=== PATIENT | female | born 1945 | race Caucasian/White ===

== ENCOUNTER 2019-04-05 11:49 | Inpatient (IN) | payer MEDICARE ==
[~2019-04-05] VITALS: Ht 160 cm; Wt 49.4 kg
[2019-04-05] MEDS ORDERED: Ventolin/Prove6.7 GM INH (12:57)
[2019-04-05] MEDS ORDERED: METOPROLOL TART25 MG PO (12:58)
[2019-04-05] MEDS ORDERED: ANORO ELLIPTA1 EACH INH (12:59)
[2019-04-05] MEDS ORDERED: Zantac150 MG PO (12:59)
[2019-04-05] MEDS ORDERED: LEVSOD50 PO (13:15)
[2019-04-05 13:51] LABS: BASOPHILS ABSOLUTE AUTO 0.05 K/mm3 (0.00-0.23); BASOPHILS PERCENT AUTO 1 % (0-2); EOSINOPHILS ABSOLUTE AUTO 0.02 K/mm3 (0.00-0.68); EOSINOPHILS PERCENT AUTO 0 % (0-6); Hematocrit 39.8 % (33.0-51.0); IMMATURE GRAN ABSOLUTE AUTO 0.07 K/mm3 (0.00-0.10); IMMATURE GRAN PERCENT AUTO 1 % (0-1); LYMPHOCYTES ABSOLUTE AUTO 2.11 K/mm3 (0.84-5.20); LYMPHOCYTES PERCENT AUTO 20 % (21-46); MONOCYTES PERCENT AUTO 5 % (4-13); Mean Corpuscular HGB 31.2 pg (26.0-34.0); Mean Corpuscular HGB Conc 32.7 g/dL (31.5-36.5); Mean Corpuscular Volume 95 fL (80-100); Mean Platelet Volume 8.6 fL (9.1-12.4); NEUTROPHILS ABSOLUTE AUTO 7.77 K/mm3 (1.96-9.15); NEUTROPHILS PERCENT AUTO 74 % (41-73); Platelet Count 302 K/mm3 (150-400); RDW Standard Deviation 49.1 fL (35.1-46.3); Red Blood Cell Count 4.17 M/mm3 (3.80-5.20); White Blood Cell Count 10.52 K/mm3 (4.00-11.30)
[2019-04-05 14:07] LABS: International Normalized Ratio 1.06; Prothrombin Time Results 11.2 Sec (9.7-11.5)
[2019-04-05 14:16] LABS: Alanine Aminotransfer (ALT/SGP 15 U/L (12-78); Albumin, Blood 2.7 g/dL (3.4-5.0); Albumin/Globulin Ratio 0.7 (0.8-1.8); Alk Phos 39 U/L (50-136); Anion Gap 6 mmol/L (6-16); Aspartate Aminotrans (AST/SGOT 22 U/L (12-37); Bilirubin, Total 0.4 mg/dL (0.1-1.0); Blood Urea Nitrogen 8 mg/dL (8-24); Bun/Creatinine Ratio 17.3 (12.0-20.0); CO2, Blood 26 mmol/L (21-32); Calcium, Blood 8.3 mg/dL (8.5-10.1); Chloride, Blood 106 mmol/L (98-108); Creatinine, Blood 0.46 mg/dL (0.40-1.00); Globulin, Blood 4.1 g/dL (2.2-4.0); Glomerular Filtration Rate >60 (60-); Glucose, Blood 104 mg/dL (70-99); Magnesium, Blood 1.8 mg/dL (1.6-2.4); Potassium, Blood 4.1 mmol/L (3.5-5.5); Sodium, Blood 138 mmol/L (136-145); Total Protein, Blood 6.8 g/dL (6.4-8.2)
--- NOTE | 2019-04-05 17:07 | NUR ---
DR. MOTA IN TO SEE PT AT ABOUT 1700
--- NOTE | 2019-04-05 17:09 | NUR ---
ADMISSION: REPORT RECEIVED BY PARK MAINTAINER RAMIREZ. PT TO UNIT AT ABOUT 1420. PT ABLE TO AMBULATE TO BED FROM [facility]. VSS. NGT HOOKED TO LIS. MODERATE AMOUNT OUTPUT. PT ADMISSION CHARTING COMPLETED AND EDUCATED ABOUT TREATMENT/ROOM. PT VERBALIZED UNDERSTANDING. REPORTS ABD PAIN, MEDICATED PER EMAR. PT DAUGHTER AND AT BEDSIDE. WILL CTM.
--- NOTE | 2019-04-05 17:40 | NUR ---
SUMMARY: NO CHANGE SINCE ADMISSION, MEDICATED FOR PAIN PRN. PT DENIES NAUSEA, UP TO VOID X1. WILL CTM AND REPORT TO NOC RN
[2019-04-06 04:21] LABS: BASOPHILS ABSOLUTE AUTO 0.03 K/mm3 (0.00-0.23); BASOPHILS PERCENT AUTO 0 % (0-2); EOSINOPHILS ABSOLUTE AUTO 0.02 K/mm3 (0.00-0.68); EOSINOPHILS PERCENT AUTO 0 % (0-6); Hematocrit 40.3 % (33.0-51.0); Hemoglobin 12.6 g/dL (11.5-16.0); IMMATURE GRAN ABSOLUTE AUTO 0.11 K/mm3 (0.00-0.10); IMMATURE GRAN PERCENT AUTO 1 % (0-1); LYMPHOCYTES ABSOLUTE AUTO 0.96 K/mm3 (0.84-5.20); LYMPHOCYTES PERCENT AUTO 11 % (21-46); MONOCYTES ABSOLUTE AUTO 0.48 K/mm3 (0.16-1.47); MONOCYTES PERCENT AUTO 5 % (4-13); Mean Corpuscular HGB 30.9 pg (26.0-34.0); Mean Corpuscular HGB Conc 31.3 g/dL (31.5-36.5); NEUTROPHILS ABSOLUTE AUTO 7.29 K/mm3 (1.96-9.15); NEUTROPHILS PERCENT AUTO 82 % (41-73); Platelet Count 294 K/mm3 (150-400); RDW Coefficient Variation 14.1 % (11.7-14.2); RDW Standard Deviation 51.6 fL (35.1-46.3); Red Blood Cell Count 4.08 M/mm3 (3.80-5.20); White Blood Cell Count 8.89 K/mm3 (4.00-11.30)
[2019-04-06 04:24] LABS: Mean Corpuscular Volume 99 fL (80-100)
[2019-04-06 04:43] LABS: Alanine Aminotransfer (ALT/SGP 16 U/L (12-78); Albumin, Blood 2.5 g/dL (3.4-5.0); Albumin/Globulin Ratio 0.6 (0.8-1.8); Alk Phos 35 U/L (50-136); Anion Gap 8 mmol/L (6-16); Aspartate Aminotrans (AST/SGOT 14 U/L (12-37); Bilirubin, Total 0.5 mg/dL (0.1-1.0); Blood Urea Nitrogen 9 mg/dL (8-24); Bun/Creatinine Ratio 15.3 (12.0-20.0); CO2, Blood 25 mmol/L (21-32); Calcium, Blood 7.9 mg/dL (8.5-10.1); Chloride, Blood 108 mmol/L (98-108); Creatinine, Blood 0.59 mg/dL (0.40-1.00); Globulin, Blood 3.9 g/dL (2.2-4.0); Glomerular Filtration Rate >60 (60-); Glucose, Blood 103 mg/dL (70-99); Potassium, Blood 4.1 mmol/L (3.5-5.5); Sodium, Blood 141 mmol/L (136-145); Total Protein, Blood 6.4 g/dL (6.4-8.2)
[2019-04-06 04:45] LABS: C-REACTIVE PROTEIN, EXT RANGE 2.12 mg/dL (0.000-0.300); Magnesium, Blood 1.7 mg/dL (1.6-2.4)
[2019-04-06 04:47] LABS: Percent Saturation 32.2 % (15.0-50.0)
--- NOTE | 2019-04-06 08:01 | NUR ---
SUMMARY PT REQUIRING IV PAIN MEDS AND ANTI EMETICS THIS SHIFT. HAD EMESIS X 1 BILE AROUND TUBE. FLUSHED TUBE WITH NO SEDIMENT OR PARTICLES RETURNED. SMALL TUBE NOTE. PT VERB COULD NOT GET LARGER TUBE IN.PT OOB FOR BRP TONIGHT WITH ASSIST. VOIDING CLR YELLOW APPEARS, BUT MIXED WITH CREAMY,SLIGHT PINK TINGED AND FEW RED STRINGY PARTICLES WHICH PT VERB PASSED PER RECTUM. REPORTS HAD RECTAL BLEEDING PRIOR TO COMING IN. WILL CONT TO MONITOR. UNABLE TO OBTAIN STOOL SAMPLE FOR LABS, BUT WILL CONTINUE TO ATTEMPT.NG PLACEMENT CHECKED AND AFTER CHECKING CXR REPORT,NG ADVANCED APPROX 1 INCH TO OBTAIN IMPROVED OUTPUT AFTER EMESIS.PT WAS SEEN BY DR LOUIE LAST NIGHT,SOLUMEDROL ORDERED. DR AWARE OF LISTED ALLERGY TO PREDNISONE. ORDERED BENADRYL 30 MIN BEFORE SOLUMEDROL.
--- NOTE | 2019-04-06 10:36 | NUR ---
BENADRYL GIVEN BEFORE SOLU-MEDROL DOSE, NO REPORT OF ALLERGY SYMPTOMS AT THIS TIME. PT IS RESTING QUIETLY. WILL CTM.
--- NOTE | 2019-04-06 19:32 | NUR ---
SUMMARY: PT ADMITTED FOR SBO. NO ACUTE CHANGE TODAY. VSS, A/O. PT SLEPT THE MAJORITY OF THE DAY, STATES THAT SHE HAS NOT SLEPT WELL THE LAST COUPLE NIGHTS. PT HAS DENIED NAUSEA, MINIMAL PAIN, RATED 2/10. NO BM. ABLE TO AMBULATE TO BATHROOM WITH 1 ASSIST. PPN STARTED AT ABOUT 1700. NO NEW OUTPUT FROM NGT. REPORT GIVEN TO RADHA PAINTER.
[2019-04-07 04:09] LABS: BASOPHILS ABSOLUTE AUTO 0.02 K/mm3 (0.00-0.23); BASOPHILS PERCENT AUTO 0 % (0-2); EOSINOPHILS PERCENT AUTO 0 % (0-6); Hematocrit 34.9 % (33.0-51.0); Hemoglobin 11.3 g/dL (11.5-16.0); IMMATURE GRAN ABSOLUTE AUTO 0.05 K/mm3 (0.00-0.10); IMMATURE GRAN PERCENT AUTO 1 % (0-1); LYMPHOCYTES ABSOLUTE AUTO 1.12 K/mm3 (0.84-5.20); LYMPHOCYTES PERCENT AUTO 15 % (21-46); MONOCYTES ABSOLUTE AUTO 0.11 K/mm3 (0.16-1.47); MONOCYTES PERCENT AUTO 2 % (4-13); Mean Corpuscular HGB Conc 32.4 g/dL (31.5-36.5); Mean Platelet Volume 8.8 fL (9.1-12.4); NEUTROPHILS ABSOLUTE AUTO 6.12 K/mm3 (1.96-9.15); NEUTROPHILS PERCENT AUTO 82 % (41-73); Platelet Count 279 K/mm3 (150-400); RDW Coefficient Variation 13.7 % (11.7-14.2); Red Blood Cell Count 3.64 M/mm3 (3.80-5.20); White Blood Cell Count 7.42 K/mm3 (4.00-11.30)
[2019-04-07 04:14] LABS: Mean Corpuscular Volume 96 fL (80-100)
[2019-04-07 04:28] LABS: Alanine Aminotransfer (ALT/SGP 14 U/L (12-78); Albumin, Blood 2.3 g/dL (3.4-5.0); Albumin/Globulin Ratio 0.6 (0.8-1.8); Alk Phos 32 U/L (50-136); Anion Gap 4 mmol/L (6-16); Aspartate Aminotrans (AST/SGOT 17 U/L (12-37); Bilirubin, Total 0.3 mg/dL (0.1-1.0); Blood Urea Nitrogen 13 mg/dL (8-24); Bun/Creatinine Ratio 30.7 (12.0-20.0); CO2, Blood 29 mmol/L (21-32); Calcium, Blood 7.9 mg/dL (8.5-10.1); Chloride, Blood 106 mmol/L (98-108); Creatinine, Blood 0.42 mg/dL (0.40-1.00); Globulin, Blood 3.7 g/dL (2.2-4.0); Glomerular Filtration Rate >60 (60-); Glucose, Blood 171 mg/dL (70-99); Phosphorus, Blood 1.7 mg/dL (2.5-4.9); Potassium, Blood 4.3 mmol/L (3.5-5.5); Sodium, Blood 139 mmol/L (136-145); Triglycerides 93 mg/dL (30-160)
[2019-04-07 07:08] LABS: HBSAG SCREEN Negative (Negative); HCV ANTIBODY <0.1 (0.0-0.9); HEP B CORE AB, TOT Negative (Negative)
--- NOTE | 2019-04-07 07:33 | NUR ---
SUMMARY PT WITH IMPROVED PAIN CONTROL TONIGHT. NO C/O NAUSEA. 150 ML OUT PER NG. PTS AT BEDSIDE AT THIS TIME. PT OUT TO XRAY PER CART.
--- NOTE | 2019-04-07 18:36 | NUR ---
Patient reports decrease in pain. Declined pain medication throughout day. Slight increase in flatulence. Ambulated through hallway. Addomen tender, difficulty swallowing. Now all meds through I.V. Patient very pleasant; talks often of family and gardening.
[2019-04-08 04:45] LABS: BASOPHILS ABSOLUTE AUTO 0.01 K/mm3 (0.00-0.23); BASOPHILS PERCENT AUTO 0 % (0-2); EOSINOPHILS PERCENT AUTO 0 % (0-6); Hemoglobin 11.5 g/dL (11.5-16.0); IMMATURE GRAN ABSOLUTE AUTO 0.07 K/mm3 (0.00-0.10); IMMATURE GRAN PERCENT AUTO 1 % (0-1); LYMPHOCYTES ABSOLUTE AUTO 1.18 K/mm3 (0.84-5.20); LYMPHOCYTES PERCENT AUTO 14 % (21-46); MONOCYTES ABSOLUTE AUTO 0.29 K/mm3 (0.16-1.47); MONOCYTES PERCENT AUTO 3 % (4-13); Mean Corpuscular HGB 31.4 pg (26.0-34.0); Mean Corpuscular HGB Conc 32.9 g/dL (31.5-36.5); Mean Corpuscular Volume 96 fL (80-100); Mean Platelet Volume 9.1 fL (9.1-12.4); NEUTROPHILS ABSOLUTE AUTO 7.11 K/mm3 (1.96-9.15); NEUTROPHILS PERCENT AUTO 82 % (41-73); Platelet Count 289 K/mm3 (150-400); RDW Coefficient Variation 13.7 % (11.7-14.2); RDW Standard Deviation 48.9 fL (35.1-46.3); Red Blood Cell Count 3.66 M/mm3 (3.80-5.20); White Blood Cell Count 8.66 K/mm3 (4.00-11.30)
--- NOTE | 2019-04-08 04:58 | NUR ---
SHIFT SUMMARY PT RESTING WELL THIS AM. AAOX4. DISCOMFORT CONTROLLED WITH 50mcg FENTANYL X1 THIS AM. NO NAUSEA/EMESIS. NGT TO LIS, TAPE CHANGED WITH 300cc LIGHT GREEN OUT. UP TO RESTROOM MULTIPLE TIMES WITH X2 SMALL LIQUID STOOLS. BOWEL TONES ALL QUADRENTS T/O NIGHT. ENCOURAGE AMBULATION TODAY. PT RESTING IN BED AT THIS TIME, NADN, WITH CALL LIGHT IN REACH.
[2019-04-08 05:03] LABS: Alanine Aminotransfer (ALT/SGP 16 U/L (12-78); Albumin, Blood 2.5 g/dL (3.4-5.0); Albumin/Globulin Ratio 0.6 (0.8-1.8); Alk Phos 28 U/L (50-136); Anion Gap 5 mmol/L (6-16); Aspartate Aminotrans (AST/SGOT 21 U/L (12-37); Bilirubin, Total 0.4 mg/dL (0.1-1.0); Blood Urea Nitrogen 13 mg/dL (8-24); Bun/Creatinine Ratio 36.3 (12.0-20.0); CO2, Blood 29 mmol/L (21-32); Calcium, Blood 8.1 mg/dL (8.5-10.1); Chloride, Blood 106 mmol/L (98-108); Creatinine, Blood 0.36 mg/dL (0.40-1.00); Globulin, Blood 3.9 g/dL (2.2-4.0); Glomerular Filtration Rate >60 (60-); Glucose, Blood 138 mg/dL (70-99); Magnesium, Blood 2.1 mg/dL (1.6-2.4); Phosphorus, Blood 2.7 mg/dL (2.5-4.9); Potassium, Blood 4.3 mmol/L (3.5-5.5); Sodium, Blood 140 mmol/L (136-145); Total Protein, Blood 6.4 g/dL (6.4-8.2)
--- NOTE | 2019-04-08 11:06 | NUR ---
REPORT GIVEN TO BROCK GARCIA TO ASSUME CARE.
--- NOTE | 2019-04-08 17:01 | NUR ---
SHIFT SUMMARY NGT CLAMPED SINCE APPROX 1030. PT MARCIE WELL. DENIES N/V. MARCIE FULL LIQS. PT REPORTS PASSING GAS AND HAVING LIQ BMS. INDEP IN ROOM. TPN DC'D AND PT STARTED ON CLINIMIX + LIPIDS. USES CALL LIGHT APPROPRIATELY.
--- NOTE | 2019-04-09 04:31 | NUR ---
SHIFT SUMMARY PT RESTING INTERMITTENTLY T/O NIGHT. AAOX4. PT DENIES DISCOMFORT/NAUSEA THIS SHIFT. NGT DC'D YESTARDAY EVENING. BOWEL TONES ACTIVE X4 QUADS. PT REPORTING FREQUENT SMALL AMOUNTS OF LIQUID STOOL + LARGE AMOUNTS OF FLATUS THIS SHIFT. CLINIMIX + LIPIDS PER ORDERS. ENCOURAGE AMBULATION TODAY TOLERATED + PO INTAKE PER ORDERS. PT RESTING AT THIS TIME WITH CALL LIGHT IN REACH.
[2019-04-09 05:32] LABS: Anion Gap 7 mmol/L (6-16); Blood Urea Nitrogen 18 mg/dL (8-24); Bun/Creatinine Ratio 46.4 (12.0-20.0); CO2, Blood 28 mmol/L (21-32); Calcium, Blood 8.3 mg/dL (8.5-10.1); Chloride, Blood 106 mmol/L (98-108); Creatinine, Blood 0.39 mg/dL (0.40-1.00); Glomerular Filtration Rate >60 (60-); Glucose, Blood 134 mg/dL (70-99); Magnesium, Blood 2.2 mg/dL (1.6-2.4); Phosphorus, Blood 3.1 mg/dL (2.5-4.9); Potassium, Blood 4.4 mmol/L (3.5-5.5); Sodium, Blood 141 mmol/L (136-145)
[2019-04-09 06:16] LABS: BASOPHILS ABSOLUTE AUTO 0.02 K/mm3 (0.00-0.23); BASOPHILS PERCENT AUTO 0 % (0-2); EOSINOPHILS PERCENT AUTO 0 % (0-6); Hematocrit 36.7 % (33.0-51.0); Hemoglobin 11.6 g/dL (11.5-16.0); IMMATURE GRAN ABSOLUTE AUTO 0.09 K/mm3 (0.00-0.10); IMMATURE GRAN PERCENT AUTO 1 % (0-1); LYMPHOCYTES ABSOLUTE AUTO 1.36 K/mm3 (0.84-5.20); LYMPHOCYTES PERCENT AUTO 15 % (21-46); MONOCYTES ABSOLUTE AUTO 0.42 K/mm3 (0.16-1.47); MONOCYTES PERCENT AUTO 5 % (4-13); Mean Corpuscular HGB 30.2 pg (26.0-34.0); Mean Corpuscular HGB Conc 31.6 g/dL (31.5-36.5); Mean Corpuscular Volume 96 fL (80-100); Mean Platelet Volume 9.5 fL (9.1-12.4); NEUTROPHILS ABSOLUTE AUTO 7.03 K/mm3 (1.96-9.15); NEUTROPHILS PERCENT AUTO 79 % (41-73); Platelet Count 253 K/mm3 (150-400); RDW Coefficient Variation 13.7 % (11.7-14.2); RDW Standard Deviation 47.9 fL (35.1-46.3); Red Blood Cell Count 3.84 M/mm3 (3.80-5.20); White Blood Cell Count 8.92 K/mm3 (4.00-11.30)
[2019-04-09] MEDS ORDERED: ONDA4ODT SL (10:27)
[2019-04-09] MEDS ORDERED: METPRE4 PO (10:27)
--- NOTE | 2019-04-09 12:49 | NUR ---
MEDICATION ADJUSTMENT MED REC WAS ADJUSTED AFTER PT WAS DISCHARGED. MEDROL 24MG PO DAILY FOR 30 DAYS CALLED TO [facility] [place] [phone] AND LEFT ON THEIR VOICEMAIL. MESSAGE ALSO LEFT ON PTS HOME PHONE VOICEMAIL TO UPDATE PT ON CHANGES.
[2019-04-11 08:08] LABS: QUANTIFERON MITOGEN VALUE >10.00 IU/mL (.); QUANTIFERON NIL VALUE 0.03 IU/mL (.); QUANTIFERON TB1 AG VALUE 0.03 IU/mL (.); QUANTIFERON TB2 AG VALUE 0.03 IU/mL (.); QUANTIFERON-TB GOLD PLUS Negative (Negative)
== END 2019-04-09 12:36 | disposition home or self-care (01) | DRG 385 ==
LOC: ER 11:49 → SURS 14:02
PROVIDERS: Internal Medicine Gastroenterology; Nurse Practitioner Acute Care; Surgery; ADMIT Family Medicine
DX: K50.812 Crohn's disease of both small and large intestine with intestinal obstruction (principal); K56.2 Volvulus; E03.9 Hypothyroidism, unspecified; J45.909 Unspecified asthma, uncomplicated; I10 Essential (primary) hypertension; E55.9 Vitamin D deficiency, unspecified; Z23 Encounter for immunization
CPT/HCPCS: 36415; 71046; 74018; 74019; 80048; 80053; 82306; 82607; 82728; 82746; 82947; 83540; 83550; 83605; 83735; 83993; 84100; 84443; 84478; 84630; 85025; 85610; 86140; 86317; 86480; 86704; 86708; 86803; 87340; 90686; 94640; 94760; 96361; 96374; 99285-25; C9113; G0008; J0610; J1200; J2405; J2920; J3010; J3411; J3475; J7030; J7060; J7131

== ENCOUNTER 2019-06-06 07:52 | Day surgery (SDC) | payer MEDICARE ==
[~2019-06-06 07:52] MED LIST: ANORO ELLIPTA1 EACH INH; LEVSOD50 PO; METOPROLOL TART25 MG PO; METPRE4 PO; ONDA4ODT SL; Ventolin/Prove6.7 GM INH; Zantac150 MG PO
== END 2019-06-06 11:50 | disposition home or self-care (01) ==
LOC: ORSCSDS 07:52
PROVIDERS: Internal Medicine Gastroenterology
PROC: 0DBE8ZX Excision of Large Intestine, Via Natural or Artificial Opening Endoscopic, Diagnostic (ICD-10-PCS; principal; 2019-06-06 09:15)
DX: K50.90 Crohn's disease, unspecified, without complications (principal); K64.8 Other hemorrhoids; I10 Essential (primary) hypertension; J45.909 Unspecified asthma, uncomplicated; E03.9 Hypothyroidism, unspecified; Z79.899 Other long term (current) drug therapy
CPT/HCPCS: 88305; J2704; J7120